=== PATIENT | female | born 1945 | race Caucasian/White ===

== ENCOUNTER 2022-12-10 12:58 | Inpatient (IN) | payer MEDICARE, SELFPAY ==
[2022-12-10] VITALS (7 sets, daily range): BP systolic 106–146; BP diastolic 53–87; PULSE 66–86; RESP 12–23; TEMP 36.5–37; O2SAT 95–100; BMI 29.9
--- NOTE | ~2022-12-10 | XR_ITS ---
EXAMINATION: XR chest 1V portable DATE: 12/10/2022 13:37 INDICATION: Confusion. TECHNIQUE: A single frontal view of the chest was obtained. COMPARISON: None. FINDINGS: There are lucencies in the upper lungs, consistent with emphysema. No pleural effusion or p neumothorax. The heart size is normal. IMPRESSION: 1. Emphysema. Reviewed, dictated and finalized at location A. IMPRESSION: 1. Emphysema.
--- NOTE | ~2022-12-10 | CT_ITS ---
EXAMINATION: CT brain wo con DATE: 12/10/2022 13:51 INDICATION: Confusion. TECHNIQUE: Computed tomography (CT) of the head was performed without intravenous contrast. The mA wa s adjusted according to patient size. Iterative reconstruction technique was employed. The dose-lengt h product was 605.33 mGy-cm. COMPARISON: None FINDINGS: There are scattered areas of low attenuation in the cerebral white matter. There is no intr acranial hemorrhage, acute infarction, or abnormal intracranial mass lesion. The ventricles are georgiana l in size. There are likely changes of ocular lens replacement surgeries. There is mild mucosal thick ening in the paranasal sinuses. The mastoid air cells are normal. IMPRESSION: 1. Mild nonspecific cerebral white matter disease, which likely represents chronic small vessel ische brittanie disease. Reviewed, dictated and finalized at location A. IMPRESSION: 1. Mild nonspecific cerebral white matter disease, which likely represents hand therapist vlad small vessel ischemic disease.
--- NOTE | ~2022-12-10 | CT_ITS ---
EXAMINATION: CT cervical spine wo con DATE: 12/10/2022 13:52 INDICATION: Neck injury. Frequent falls. TECHNIQUE: Computed tomography (CT) of the cervical spine was performed without intravenous contrast. Automated exposure control and iterative reconstruction technique were employed. The dose-length pro duct was 382.01 mGy-cm. COMPARISON: None FINDINGS: There is kyphosis of cervical spine. There is mild chronic anterior wedging of C7 and T1 ve rtebral bodies. There is moderately decreased disc height at C5-C6 and mildly decreased disc height a t C6-C7. The following disc levels are specifically discussed: C2-C3: There is no uncovertebral joint osteoarthritis. There is mild bilateral facet joint osteoarthr itis. There is no neural foraminal stenosis. There is no central canal stenosis. C3-C4: There is mild right uncovertebral joint osteoarthritis. There is moderate right and mild left facet joint osteoarthritis. There is no neural foraminal stenosis. There is no central canal stenosis . C4-C5: There is mild left uncovertebral joint osteoarthritis. There is severe right and mild left fac et joint osteoarthritis. There is mild right neural foraminal stenosis. There is mild central canal s tenosis. C5-C6: There is mild right and severe left uncovertebral joint osteoarthritis. There is mild bilatera l facet joint osteoarthritis. There is mild left neural foraminal stenosis. There is mild central can al stenosis. C6-C7: There is mild left uncovertebral joint osteoarthritis. There is mild right and moderate left f acet joint osteoarthritis. There is mild left neural foraminal stenosis. There is no central canal st enosis. C7-T1: There is no uncovertebral joint osteoarthritis. There is moderate right and severe left facet joint osteoarthritis. There is mild left neural foraminal stenosis. There is no central canal stenosi s. IMPRESSION: 1. No fracture. 2. Moderate cervical spondylosis. Reviewed, dictated and finalized at location A.
--- NOTE | 2022-12-10 13:24 | ECG_ITS ---
Measurements Intervals [place] Rate: 68 P: 29 PA: 142 QRS: 60 QRSD: 84 T: 50 QT: 400 QTc: 426 Interpretive Statements SINUS RHYTHM BASELINE ARTIFACT- I, II, III, AVR, AVL, AVF NORMAL ECG NO PREVIOUS ECG AVAILABLE FOR COMPARISON Electronically Signed On 12-10-2022 13:50:01 CDT by Jed Garcia D.O.
--- NOTE | 2022-12-10 13:34 | ED.AMS ---
HPI - Altered Mental Status General Chief Complaint: Altered Mental Status Stated Complaint: wants checked for uti, falls, confusion, hx alzh Time Seen by Provider: 12/10/22 13:08 Source: family and RN notes reviewed Mode of arrival: wheelchair Limitations: altered mental status and dementia History of Present Illness HPI narrative: This is a 76 year old female with history of dementia and alcohol abuse who presents with family for evaluation of altered mental status. Her daughter states patient was admitted to [facility] at [facility] 11 days ago. She reports patient had history of drinking 2 scotch drinks daily prior to admission to [facility]. She states patient was having nausea and vomiting on her arrival and tremors. She was placed on Valium by provider at that facility for alcohol withdrawals. She states 5 days after admission patient started having visual hallucinations , worsening confusion and frequent falls. She states patient's falls are witnessed by staff. They are concerned patient possibly has UTI. Related Data Home Medications Medication Instructions Recorded Confirmed escitalopram oxalate 20 mg tablet 20 mg PO DAILY 08/08/22 12/10/22 (Lexapro) cetirizine 10 mg tablet (Zyrtec) 10 mg PO DAILY PRN allergies 08/10/22 12/10/22 mirabegron 25 mg tablet,extended 25 mg PO DAILY 08/10/22 12/10/22 release 24 hr (Myrbetriq) calcium carbonate 600 mg-vitamin 600 cap PO BID 12/04/22 12/10/22 D3 12.5 mcg (500 unit) capsule Allergies Allergy/AdvReac Type Severity Reaction Status Date / Time albuterol AdvReac Unknown Palpitation Verified 12/10/22 17:59 s amoxicillin AdvReac Unknown Unknown Verified 12/10/22 17:59 bupropion [From Wellbutrin] AdvReac Unknown Agitated Verified 12/10/22 17:59 epinephrine AdvReac Unknown Swelling Verified 12/10/22 17:59 of Lip/Tongue/Throat PMFSH Past Medical History Medical History (Updated 12/10/22 @ 19:18 by Mallorie Honeycutt MD) Alcohol dependence Alzheimer's dementia CSF confirmed COPD (chronic obstructive pulmonary disease) Depression Macular degeneration Pre-diabetes Surgical History Surgical History H/O cataract extraction Family History Family History Mother Leukemia Social History Social History (Updated 12/10/22 @ 16:19 by Steffanie Marie NP) Social History: and has 2 daughters and 2 step children. 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 she is having difficulty following instructions such as how to get into bed HENMT: Head: normal to inspection Face and sinus: normal facial exam Mouth: Yes Normal oral and palatal mucosa present and Yes moist mucous membranes Throat: posterior oropharynx normal and uvula midline Eyes: Pupils: Equal, round and reactive pupils present EOM: EOMs intact bilaterally Neck: Neck: normal visual inspection Chest: Chest palpation & inspection: normal inspection of the chest Resp: Effort & Inspection: normal respiratory effort Auscultation: clear to auscultation bilaterally Cardio: Rate: regular rate Rhythm: regular rhythm Heart sounds: no murmurs GI: GI Palp: Yes Soft to palpation, No Tenderness to palpation present (GI), No Guarding due to palpation present (GI) and No Rigid due to palpation Auscultation
[2022-12-10] MEDS: SODIUM CHLORIDE 0.9% IV 1,000 ML 999 ML IV CONT (14:33)
[2022-12-10 14:47] LABS: Basophils Percent Auto 0.5 % (0.2-1.2); Eosinophils Absolute Auto 0.1 K/mm3 (0-0.3); Eosinophils Percent Auto 0.6 % (0-4.4); Hematocrit 41.5 % (37.0-47.0); Hemoglobin 14.1 g/dL (12.0-15.0); Immature Granulocyte Absolute 0.02 K/mm3 (0.00-0.031); Immature Granulocyte Percent A 0.3 % (0-0.5); Lymphocytes Absolute Auto 2.04 K/mm3 (0.9-3.2); Mean Corpuscular Hemoglobin 33.2 pg (26-34); Mean Corpuscular Volume 97.6 fl (80-100); Monocytes Absolute Auto 0.9 K/mm3 (0.1-0.6); Monocytes Percent Auto 10.8 % (2.6-8.5); Neutrophils Absolute Auto 4.9 K/mm3 (1.3-6.7); Neutrophils Percent Auto 61.8 % (45.5-73.1); Platelet Count Result 264 k/mm3 (150-375); Red Blood Count 4.25 M/mm3 (4.2-5.4); Red Cell Distribution Width 12.2 % (11.5-14.5); White Blood Count 7.9 K/mm3 (4.5-10.0)
[2022-12-10 14:57] LABS: Ethanol < 10 mg/dL (<10)
[2022-12-10 15:00] LABS: Prothrombin Time 13.6 Seconds (11.1-14.7)
[2022-12-10 15:01] LABS: Partial Thromboplastin Time 38.4 SECONDS (22.3-36.8)
[2022-12-10 15:06] LABS: Alanine Aminotransferase 34 U/L (6-35); Albumin Level 4.2 g/dL (3.5-5.1); Alkaline Phosphatase 49 U/L (38-126); Anion Gap 5 mmol/L (8-16); Aspartate Amino Transferase 36 U/L (14-36); Bilirubin,Total 0.6 mg/dL (0.2-1.3); Blood Urea Nitrogen 23 mg/dL (7-17); Calcium 9.9 mg/dL (8.4-10.2); Carbon Dioxide 33 mmol/L (22-30); Chloride 102 mmol/L (98-107); Estimated Glomerular Filt Rate > 60; Glucose 125 mg/dL (65-110); Sodium 140 mmol/L (137-145)
[2022-12-10 15:18] LABS: Troponin I < 0.012 ng/mL (0.000-0.034)
[2022-12-10 15:26] LABS: Amphetamine Screen Urine Negative (Negative); Barbiturate Screen Urine Negative (Negative); Benzodiazepines Screen Urine Positive (Negative); Cannabinoid Screen Urine Negative (Negative); Cocaine Screen Urine Negative (Negative); Methadone Screen Urine Negative (Negative); Opiate Screen Urine Negative (Negative); Phencyclidine Screen Urine Negative (Negative)
[2022-12-10 15:31] LABS: Appearance Urine Clear (Clear); Bacteria Urine None Seen /hpf; Bilirubin Urine Negative (Negative); Blood Urine Negative (Negative); Calcium Oxalate Crystals Urine Present /hpf; Color Urine Dark Yellow (Yellow); Glucose Urine UA Negative (Negative); Ketones Urine 1+ mg/dL (Negative); Leukocyte Esterase Ur Negative LEU/UL (Negative); Nitrate Urine Negative (Negative); Protein Urine Trace mg/dL (Negative); RBC Urine 0-2 /hpf (0-2); Specific Grav Ur 1.027 (1.001-1.035); Squamous Epithelial Cell Urine None seen /hpf (Few); WBC Urine 0-5 /hpf; pH Urine 5.5 (5.0-9.0)
[2022-12-10 15:32] LABS: SARS-CoV-2 RNA PCR Negative (Negative)
[2022-12-10 15:33] LABS: Add Urine Microscopic? YES
--- NOTE | 2022-12-10 16:10 | PM.IMHP ---
H&P: HPI History of Present Illness Date/Time: 12/10/22 16:10 Chief Complaint: Altered mental status and dementia Narrative: this is a 76-year-old female patient with a history of alcoholism and dementia. The patient recently was admitted to [facility] 11 days ago. The patient had to be weaned off of alcohol and tobacco. The patient would drink 2 scotch drinks daily prior to her admission to [facility]. The patient has become very irritable and having tremors. The patient is now hallucinating. The patient has been having some nausea and vomiting and tremors upon arrival to the emergency room. The patient has been on Valium at the facility for the alcohol withdrawals. The patient is very confused and having frequent falls. The patient was brought to the emergency room for concern of possible UTI. Her urine was found to be negative. Cervical CT spine no fracture moderate cervical spondylosis. Cervical spine CT is read as. No fracture. 2. Moderate cervical spondylosis. head CT is read as?Mild nonspecific cerebral white matter disease, which likely represents chronic small vessel ischemic disease. the patient was given IV fluids. . The patient is talking in her sleep. At this point she has been pretty calm. However the daughter is at the bedside and the daughter states that the patient has been getting aggressive at times. The patient is being admitted to observation status on the date of service of 12/10/2022. Review of Systems Review of Systems: All systems reviewed & are unremarkable except as noted in HPI and below Constitutional: Constitutional: Reports as per HPI and Reports no additional constitutional complaints Eyes: Eyes: Reports as per HPI and Reports no additional eye complaints ENT: Reports system reviewed and no additional complaints, except as documented and Reports Normal hearing present Cardiovascular: Cardiovascular: Reports no additional cardiovascular complaints Respiratory: Respiratory: Reports no additional respiratory complaints and Reports no additional respiratory complaints Gastrointestinal: Gastrointestinal: Reports as per HPI and Reports no additional gastrointestinal complaints Musculoskeletal: Musculoskeletal: Reports no additional musculoskeletal complaints Integumentary/Breasts: Skin/Breast: Reports system reviewed and no additional complaints, except as docu and Reports as per HPI Neurologic: Reports system reviewed and no additional complaints, except as documented, Reports as per HPI and Reports Normal hearing present Psychiatric: Psychiatric: Reports no additional psychiatric complaints and Reports as per HPI Endocrine: Endocrine: Reports no additional endocrine complaints Hematologic/Lymphatic: Hematologic/Lymphatic: Reports no additional hematologic/lymphatic complaints Allergic/Immunologic: Allergic/Immunologic: Reports no additional allergic/immunologic complaints [facility] Past Medical History Medical History Alcohol dependence Alzheimer's dementia CSF confirmed COPD (chronic obstructive pulmonary disease) Depression Macular degeneration Pre-diabetes Surgical History Surgical History H/O cataract extraction Family History Family History Mother Leukemia Social History Social History (Updated 12/10/22 @ 21:17 by Steffanie Marie NP) Social History: She is and has 2 daughters and 2 step children. 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 She is a former smoker. According to the daughter the patient had been drinking at least 2-3 alcoholic drinks a night. The patient recently quit smoking within the last 11 days. Her daughter is the durable power broach setter for healthcare. code status : dnr Years smoked: 60 Smoking status: Former smoker Tobacco
--- NOTE | 2022-12-10 17:48 | PC.NURSE ---
This patient, Adelina Campuzano, was admitted to Medical Room 347-. Patient/family oriented to hospital policies and general routines including ID bracelet, bed and alarms, visiting hours, pain management, procedures, bathroom and other care routines, personal items, smoking policy, room service/diet, and visiting hours. Information on how to activate the Rapid Response Team has been discussed. Patient/Family are encouraged to report perceived risks to care and to ask questions if they do not understand what they are told or what they should do.
--- NOTE | 2022-12-10 18:24 | PC.NURSE ---
Admission questions completed with daughter at bedside. Patient is unable to comprehend and answer questions appropriately at this time.
[2022-12-10 20:46] LABS: Glucose Point of Care 133 mg/dl (65-105)
[2022-12-11] VITALS (7 sets, daily range): BP systolic 113–155; BP diastolic 61–78; PULSE 66–82; RESP 16–20; TEMP 36.6–36.7; O2SAT 94–99
[2022-12-11 00:15] LABS: Glucose Point of Care 101 mg/dl (65-105)
[2022-12-11 06:08] LABS: Basophils Percent Auto 0.3 % (0.2-1.2); Eosinophils Absolute Auto 0.1 K/mm3 (0-0.3); Eosinophils Percent Auto 1.6 % (0-4.4); Hematocrit 38.4 % (37.0-47.0); Hemoglobin 12.9 g/dL (12.0-15.0); Immature Granulocyte Absolute 0.02 K/mm3 (0.00-0.031); Immature Granulocyte Percent A 0.3 % (0-0.5); Lymphocytes Percent Auto 28.6 % (18.3-44.2); Mean Corpuscular HGB Conc 33.6 g/dl (32-36); Mean Corpuscular Hemoglobin 32.8 pg (26-34); Mean Corpuscular Volume 97.7 fl (80-100); Monocytes Absolute Auto 0.9 K/mm3 (0.1-0.6); Monocytes Percent Auto 13.5 % (2.6-8.5); Neutrophils Absolute Auto 3.5 K/mm3 (1.3-6.7); Neutrophils Percent Auto 55.7 % (45.5-73.1); Platelet Count Result 227 k/mm3 (150-375); Red Blood Count 3.93 M/mm3 (4.2-5.4); White Blood Count 6.3 K/mm3 (4.5-10.0)
[2022-12-11 06:11] LABS: Alanine Aminotransferase 27 U/L (6-35); Albumin Level 3.5 g/dL (3.5-5.1); Alkaline Phosphatase 45 U/L (38-126); Anion Gap 4 mmol/L (8-16); Aspartate Amino Transferase 25 U/L (14-36); Bilirubin,Total 0.7 mg/dL (0.2-1.3); Blood Urea Nitrogen 16 mg/dL (7-17); Calcium 8.3 mg/dL (8.4-10.2); Carbon Dioxide 29 mmol/L (22-30); Chloride 106 mmol/L (98-107); Estimated CRCL calculation 81 ml/min; Estimated Glomerular Filt Rate > 60; Glucose 99 mg/dL (65-110); Magnesium 1.9 mg/dL (1.6-2.3); Potassium 3.7 mmol/L (3.4-5.0); Sodium 139 mmol/L (137-145)
[2022-12-11 06:14] LABS: Lactic Acid Reflex 0.7 mmol/L (0.7-2.0)
[2022-12-11 07:32] LABS: Thyroid Stimulating Hormone Reflex 0.693 uIU/mL (0.465-4.68)
[2022-12-11 08:28] LABS: Glucose Point of Care 100 mg/dl (65-105)
[2022-12-11] MEDS: FOLIC ACID 1 MG TABLET PO (09:39)
[2022-12-11] MEDS: ESCITALOPRAM OXALATE 10 MG TABLET 20 MG PO (09:39)
[2022-12-11] MEDS: MIRABEGRON 25 MG ER TABLET PO (09:39)
[2022-12-11] MEDS: THIAMINE HCL 200 MG/2 ML VIAL 100 MG IV PUSH (09:39)
[2022-12-11] MEDS: FLUTICASONE/SALMETEROL 115-21 MCG INHALER 1 PUFF 2 PUFF INHALATION ×2 (09:51→18:24)
--- NOTE | 2022-12-11 12:01 | PM.IMPN ---
Progress Note: A&P Assessment and Plan (1) Acute encephalopathy: Code(s): G93.40 - Encephalopathy, unspecified Status: Acute Assessment and Plan: Patient's urine was negative. Her chest x-ray shows some emphysema. Head CT was read as mild nonspecific cerebral white matter disease, which likely represents chronic small vessel ischemic disease. the patient does have a history of dementia. The patient does have a history of alcoholism and tobacco abuse as well. The patient is being weaned off of both of those at the same time. This might be a combination of dementia and Wernicke's encephalopathy PT and OT evaluation would greatly be appreciated. (2) Alzheimer's dementia: Code(s): G30.9 - Alzheimer's disease, unspecified; F02.80 - Dementia in other diseases classified elsewhere, unspecified severity, without behavioral disturbance, psychotic disturbance, mood disturbance, and anxiety Status: Acute Assessment and Plan: Discharge back to memory care when stable The patient will need to be on falls precautions. (3) COPD (chronic obstructive pulmonary disease): Code(s): J44.9 - Chronic obstructive pulmonary disease, unspecified Status: Acute Assessment and Plan: Albuterol p.r.n.. The patient recently stopped smoking in the last 11 days. (4) Alcohol dependence: Code(s): F10.20 - Alcohol dependence, uncomplicated Status: Acute Assessment and Plan: According to the family the patient had been drinking 2-3 drinks of alcohol a night. Continue with the CIWA protocol. P.r.n. Ativan continue with thiamin the patient is having some hallucinations and has tremors at times. (5) Depression: Code(s): F32.A - Depression, unspecified Status: Acute Assessment and Plan: Continue with Lexapro and mirtazapine was added. Plan Subjective Date/time seen: 12/11/22 12:01 Interval history: Patient appears confused. Has a flat affect Review of Systems Review of Systems: ROS unobtainable: Yes unobtainable due to mental status Exam Const: General: healthy appearing, comfortable, no acute distress, well developed, awake, average body habitus and well nourished Nutritional Appearance: average body habitus and well nourished Orientation/consciousness: oriented to person Limitations: no limitations HENMT: Head: normal to inspection, No palpable skull fracture present, normocephalic, atraumatic and abrasion Ears: hearing grossly normal bilaterally and external ears normal Face/Nose/Sinus: Normal external nose present Eyes: General: appearance normal, both eyes and all related structures Alignment and Position: alignment normal Periorbital: periorbital findings normal Eyelids: eyelids normal Conjunctivae: conjunctivae normal Sclera: sclerae normal Cornea: corneas normal Pupils: Equal, round and reactive pupils present EOM: EOMs intact bilaterally Neck: Neck: normal visual inspection, full ROM, no lymphadenopathy, trachea midline and supple Chest: Chest palpation & inspection: normal inspection of the chest Resp: Effort & Inspection: normal respiratory effort Auscultation: clear to auscultation bilaterally Cardio: Palpation: normal PMI Rate: regular rate Rhythm: regular rhythm Heart sounds: S1 normal heart sound present and S2 normal heart sound present Peripheral pulses: Peripheral pulses 2+ throughout GI: Inspection: normal to inspection Auscultation: normal bowel sounds Rectal Exam: deferred Back/Spine/Pelvis: Cervical Spine: cervical ROM normal Skin: General skin exam: normal color Lesions: no lesions Rashes: no rashes Trauma: no lacerations or abrasions Wounds: no wounds Hair: normal Nails: normal Neuro: General: oriented to person Cranial nerves: Yes Equal, round and reactive pupils present and Yes Normal hearing present Speech: normal speech Motor exam (neuro): 5/5 motor strength present
[2022-12-11 12:09] LABS: Glucose Point of Care 150 mg/dl (65-105)
[2022-12-11 17:17] LABS: Glucose Point of Care 137 mg/dl (65-105)
[2022-12-11] MEDS: LORazepam INJ (*CRX) 2 MG/ML VIAL IV PUSH (20:48)
[2022-12-11 21:55] LABS: Glucose Point of Care 158 mg/dl (65-105)
[2022-12-12 05:18] VITALS: BP 145/73; PULSE 75; RESP 18; TEMP 36.4; O2SAT 95
[2022-12-12] MEDS: FLUTICASONE/SALMETEROL 115-21 MCG INHALER 1 PUFF 2 PUFF INHALATION (08:13)
[2022-12-12 08:50] LABS: Glucose Point of Care 109 mg/dl (65-105)
[2022-12-12] MEDS: THIAMINE HCL 100 MG TABLET PO (09:09)
[2022-12-12] MEDS: FOLIC ACID 1 MG TABLET PO (09:09)
[2022-12-12] MEDS: MIRABEGRON 25 MG ER TABLET PO (09:09)
[2022-12-12] MEDS: ESCITALOPRAM OXALATE 10 MG TABLET 20 MG PO (09:09)
[2022-12-12] MEDS: QUEtiapine FUMARATE 12.5 MG TABLET PO (09:10)
--- NOTE | 2022-12-12 11:39 | PM.DS ---
DS: Admitting Diagnosis Discharge Date 12/12/2022 Admitting Diagnosis Agitation alcohol withdrawal Dementia DS: Discharge Diagnosis Discharge Diagnosis (1) Alzheimer's dementia: Code(s): G30.9 - Alzheimer's disease, unspecified; F02.80 - Dementia in other diseases classified elsewhere, unspecified severity, without behavioral disturbance, psychotic disturbance, mood disturbance, and anxiety Status: Acute (2) Alcohol dependence: Code(s): F10.20 - Alcohol dependence, uncomplicated Status: Acute (3) COPD (chronic obstructive pulmonary disease): Code(s): J44.9 - Chronic obstructive pulmonary disease, unspecified Status: Acute (4) Acute encephalopathy: Code(s): G93.40 - Encephalopathy, unspecified Status: Acute DS: Summary Hospital Course Hospital Course: this is a 76-year-old female patient with a history of alcoholism and dementia.? The patient recently was admitted to [facility] 11 days ago.? The patient had to be weaned off of alcohol and tobacco.? The patient would drink 2 scotch drinks daily prior to her admission to [place].? The patient has become very irritable and having tremors.? The patient is now hallucinating.? The patient has been having some nausea and vomiting and tremors upon arrival to the emergency room.? The patient has been on Valium at the facility for the alcohol withdrawals.? The patient is very confused and having frequent falls.? The patient was brought to the emergency room for concern of possible UTI.? Her urine was found to be negative.? Cervical CT spine no fracture moderate cervical spondylosis.? ?head CT is read as?Mild nonspecific cerebral white matter disease, which likely represents chronic small vessel ischemic disease. the patient was given IV fluids. Patient was put on CIWA protocol. It appears that patient's symptoms are likely secondary to chronic alcoholism and she is not in alcohol withdrawal. Patient has been agitated at times here in the hospital. We have started her on Seroquel. Patient would benefit from outpatient psychiatry evaluation. This was explained to the in detail. At this time patient is clinically stable and is being discharged back to [facility]. Her issues are chronic and she likely has Wernicke's encephalopathy. Time Spent with Patient Time attestation: Total time spent providing and/or coordinating discharge services: Exam Const: General: healthy appearing, comfortable, no acute distress, well developed, awake, average body habitus and well nourished Nutritional Appearance: average body habitus and well nourished Orientation/consciousness: oriented to person Limitations: no limitations HENMT: Head: normal to inspection, No palpable skull fracture present, normocephalic, atraumatic and abrasion Ears: hearing grossly normal bilaterally and external ears normal Face/Nose/Sinus: Normal external nose present Eyes: General: appearance normal, both eyes and all related structures Alignment and Position: alignment normal Periorbital: periorbital findings normal Eyelids: eyelids normal Conjunctivae: conjunctivae normal Sclera: sclerae normal Cornea: corneas normal Pupils: Equal, round and reactive pupils present EOM: EOMs intact bilaterally Neck: Neck: normal visual inspection, full ROM, no lymphadenopathy, trachea midline and supple Chest: Chest palpation & inspection: normal inspection of the chest Resp: Effort & Inspection: normal respiratory effort Auscultation: clear to auscultation bilaterally Cardio: Palpation: normal PMI Rate: regular rate Rhythm: regular rhythm Heart sounds: S1 normal heart sound present and S2 normal heart sound present Peripheral pulses: Peripheral pulses 2+ throughout GI: Inspection: normal to inspection Auscultation: normal bowel sounds Rectal Exam: deferred Back/Spine/Pelvis: Cervical Spine: cervical ROM normal Skin: General skin exam: normal color Lesions: no
[2022-12-12 14:33] LABS: EDCOVIDSCREEN Negative (Negative)
== END 2022-12-12 15:09 | DRG 641 ==
LOC: ANHED 16:15 → ANH3MED 16:48
PROVIDERS: Nurse Practitioner; Admitting Provider Family Medicine; Emergency Provider General Practice; PCP Physician Assistant Medical; Visit Provider Hospitalist
DX: E51.2 Wernicke's encephalopathy (principal); F10.20 Alcohol dependence, uncomplicated; G30.9 Alzheimer's disease, unspecified; F02.80 Dementia in other diseases classified elsewhere, unspecified severity, without behavioral disturbance, psychotic disturbance, mood disturbance, and anxiety; J44.9 Chronic obstructive pulmonary disease, unspecified; F32.A Depression, unspecified; Z20.822 Contact with and (suspected) exposure to COVID-19; Z66 Do not resuscitate; Z87.891 Personal history of nicotine dependence
CPT/HCPCS: 36415; 70450; 71045; 72125; 80053; 80307; 81001; 82948; 83605; 83735; 84443; 84484; 85025; 85610; 85730; 87426; 87635; 93005; 94640; 96361; 97162; 97166; 99285; A9270; C9803; G0378; J2060; J3411; J7030